=== PATIENT | male | born 1955 | race Caucasian/White ===

== ENCOUNTER → 2021-07-27 | Outpatient (CLI) | payer MEDICARE ==
[~2021-07-27] MED LIST: ASPIRIN EC81 MG PO; HYDROCODONE/ACET PO; METHADONE HCL10 MG PO; PLAVIX75 MG PO; TESTOSTERONE TD; TOPROL XL25 MG PO; XANAX1 MG PO; ZOCOR20 MG PO
== END ==
LOC: DX 10:11
PROVIDERS: ATTEND Family Medicine
DX: R13.10 Dysphagia, unspecified (principal)
CPT/HCPCS: 74230

== ENCOUNTER 2021-09-03 10:58 | Outpatient (RCR) | payer MEDICARE | END 2021-09-14 | LOC: ST 10:58 | PROVIDERS: ATTEND Family Medicine | DX: R13.13 Dysphagia, pharyngeal phase (principal); R29.810 Facial weakness; Z20.822 Contact with and (suspected) exposure to COVID-19 | CPT/HCPCS: 92526 ×9; 92610 ×2; U0002 ==

== ENCOUNTER 2021-09-21 11:00 | Outpatient (RCR) | payer MEDICARE | END 2021-10-15 | LOC: ST 11:00 | PROVIDERS: ATTEND Family Medicine | DX: R13.12 Dysphagia, oropharyngeal phase (principal) ==